=== PATIENT | male | born 1950 | race Caucasian/White ===

== ENCOUNTER 2017-05-05 16:31 | Inpatient (IN) | payer MEDICARE, BC ==
[~2017-05-05] VITALS: Ht 165.1 cm; Wt 64.4 kg
[2017-05-05 20:00] VITALS: BP 145/76
--- NOTE | 2017-05-05 23:45 | NUR ---
RECIEVED PT ON ROUNDS WHEN ARRIVE ON SHIFT AT 2300 PT RESTLESS IN BED WITH FRIEND AT SIDE PT IN DROPLET ISOLATION DUE TO POTENTIAL MENINGITIS NOTED TO BE IN PAIN COMPLAINS OF PAIN LEVEL 9 IN HEAD SHOULDER BACK AND ARMS GIVEN MORPHINE 2 MG PER ORDER IVP PER COMPLAINT AND REQUEST. PIV PATENT TO NS PER ORDER. DRESSING INTACT WITH NO REDNESS NTOED TO SKIN AROUND INSERTION SITE. BED ALARM TURNED ON AND TESTED FOR FUNCTION. SIDE RAILS UP X 2. CALL LIGHT IN REACH FRIEND TO BRING CURRENT MED LIST IN AM
[2017-05-06] VITALS (7 sets, daily range): BP systolic 131–153; BP diastolic 68–79; BMI 23.6
[2017-05-06 05:20] LABS: BASOPHILS 0.2 % (0-2); EOSINOPHILS 0.1 % (0-7); HEMATOCRIT 37.8 % (42.0-54.0); HEMOGLOBIN 12.8 g/dL (13.5-17.5); IMMATURE GRANULOCYTES 0.2 % (0-5); LYMPHOCYTES 6.1 % (15-50); MCH 31.1 pg (26.0-34.0); MCHC 33.9 g/dL (31.0-37.0); MONOCYTES 17.3 % (2-11); NEUTROPHILS 76.1 % (40-80); PLATELET COUNT 375 10x3/uL (130-400); RBC 4.11 10x6/uL (4.20-6.10); RDW 13.8 % (11.5-14.5); WBC 11.1 10x3/uL (4.8-10.8)
[2017-05-06 05:24] LABS: ALBUMIN 2.5 g/dL (3.4-5.0); ALKALINE PHOSPHATASE 58 U/L (46-116); ALT (SGPT) 15 U/L (10-68); BILIRUBIN - TOTAL 0.72 mg/dL (0.2-1.3); CALC OSMOLALITY 261 mosm/kg (275-300); CALCIUM 8.2 mg/dL (8.5-10.1); CARBON DIOXIDE 25.6 mmol/L (21.0-32.0); CHLORIDE - SERUM 94 mmol/L (98-107); CREATININE - SERUM 0.6 mg/dL (0.6-1.3); GLUCOSE 115 mg/dL (74-106); POTASSIUM - SERUM 3.4 mmol/L (3.5-5.1); PROTEIN - SERUM 7.2 g/dL (6.4-8.2); SODIUM 131 mmol/L (136-145); UREA NITROGEN 8 mg/dL (7-18); eGFR NON AFRICAN AMERICAN > 90 mL/min (90-120)
--- NOTE | 2017-05-06 06:42 | NUR ---
MCCLURE CATHETER INSERTED AT 0300 PT HAVING ISSUES WITH VOIDING UNABLE TO VOID AND EMPTY. 16 FR MCCLURE CATHETER INSERTED PER STERILE TECHNIQUE TOLERATED WELL HAD SMALL AMOUNT OF RESISTANCE NOTED IMMEDIATE RETURN OF 450 CC PHONG COLORED URINE.
[2017-05-06] MEDS ORDERED: NORVASC5 MG PO (06:50)
[2017-05-06] MEDS ORDERED: COZAAR50 MG (06:51)
--- NOTE | 2017-05-06 07:30 | NUR ---
PT STATES THEY ARE IN A LOT OF PAIN, PAIN MEDS GIVEN, CALL LIGHT IN REACH, BED LOWEST POSITION, WILL CONTINUE TO MONITOR
[2017-05-06 08:28] LABS: APTT 37.9 SECONDS (22.8-39.4); INR 1.1 (0.85-1.17)
--- NOTE | 2017-05-06 11:00 | NUR ---
REPORTS PAIN BETTER FOR NOW. NO NEEDS AT PRESENT. BED LOW CL IN REACH..
[2017-05-06 11:55] LABS: GLUCOSE - CSF 73 MG/DL (40-75); PROTEIN - CSF 93 MG/DL (12-60)
[2017-05-06 12:26] LABS: APPEARANCE - CSF COLORLESS; RBC - CSF 166 cmm (0-0)
--- NOTE | 2017-05-06 20:51 | NUR ---
ADMINISTERED MORPHINE 2MG IVP PER ORDER. PATIENT IN BED, HOB 30 DEGREES. NO SIGNS OF DISTRESS NOTED. PATIENT FAMILY MEMBER AT BEDSIDE. MAINTAINED DROPLET PRECAUTIONS. PATIENT HAS A TEMP OF 101.6. NOTIFIED , WHO IS PRESENT ON THE UNIT. HE SAID HE WILL ORDER TYLENOL. NOTIFIED PATIENT'S NURSE AIDAN ANAYA.
[2017-05-07] VITALS: BP 148/72
--- NOTE | 2017-05-07 00:25 | NUR ---
WIRE TEMPERER REPORT PT'S TEMP IS 101.2, TYLENOL GIVEN. WILL MONITOR CLOSELY.
[2017-05-07 04:00] VITALS: BP 142/67
[2017-05-07 06:14] LABS: BASOPHILS 0.3 % (0-2); EOSINOPHILS 0.1 % (0-7); HEMATOCRIT 37.6 % (42.0-54.0); HEMOGLOBIN 12.7 g/dL (13.5-17.5); IMMATURE GRANULOCYTES 0.3 % (0-5); MCHC 33.8 g/dL (31.0-37.0); MCV 91.7 fL (80.0-100.0); MEAN PLATELET VOLUME 8.9 fL (7.4-10.4); MONOCYTES 17.4 % (2-11); NEUTROPHILS 69.9 % (40-80); PLATELET COUNT 376 10x3/uL (130-400); RDW 13.8 % (11.5-14.5)
[2017-05-07 06:35] LABS: ALBUMIN 2.3 g/dL (3.4-5.0); ALKALINE PHOSPHATASE 54 U/L (46-116); ALT (SGPT) 21 U/L (10-68); CALC OSMOLALITY 257 mosm/kg (275-300); CALCIUM 8.4 mg/dL (8.5-10.1); CARBON DIOXIDE 26.5 mmol/L (21.0-32.0); CHLORIDE - SERUM 94 mmol/L (98-107); CREATININE - SERUM 0.7 mg/dL (0.6-1.3); GLUCOSE 98 mg/dL (74-106); POTASSIUM - SERUM 3.3 mmol/L (3.5-5.1); PROTEIN - SERUM 6.8 g/dL (6.4-8.2); SODIUM 130 mmol/L (136-145); UREA NITROGEN 5 mg/dL (7-18); eGFR NON AFRICAN AMERICAN > 90 mL/min (90-120)
--- NOTE | 2017-05-07 07:30 | NUR ---
RESTING, AT BEDSIDE, DENIES NEEDS, BATH GIVEN, LINENS CHANGED, BED LOWEST POSITION, CALL LIGHT IN REACH, WILL CONTINUE TO MONITOR
[2017-05-07 08:07] VITALS: BP 148/76
[2017-05-07 10:46] VITALS: Ht 165.1 cm; Wt 64.4 kg
[2017-05-07 12:17] VITALS: BP 154/81
--- NOTE | 2017-05-07 13:21 | NUR ---
DENIES NEEDS AT THIS TIME. AT BEDSIDE. RESPIRATIONS EVEN AND NON LABORED. CALL LIGHT IN REACH, WILL CONTINUE WITH PLAN OF CARE.
[2017-05-07 16:14] VITALS: BP 153/83
[2017-05-07 20:00] VITALS: BP 148/75
--- NOTE | 2017-05-07 22:58 | NUR ---
REC'D LYING IN BED. IS AT BEDSIDE. ALERT AND ORIENTED X1. REPORTED PAIN 5/10. WILL ADMIN PM/AM MEDS PRESCRIBED. NO DISTRESS NOTED. PULLED IV OUT OF LEFT FA. WILL RECITE. INSTRUCTED TO CALL IF NEEDED ANYTHING. VERBALIZED UNDERSTANDING. BED LOW, LOCKED, CALL LIGHT IN REACH, ALARM ON.
[2017-05-08] VITALS: BP 153/78
[2017-05-08 04:00] VITALS: BP 138/69
[2017-05-08 07:00] LABS: BASOPHILS 0.2 % (0-2); EOSINOPHILS 0.1 % (0-7); HEMATOCRIT 37.1 % (42.0-54.0); HEMOGLOBIN 12.6 g/dL (13.5-17.5); IMMATURE GRANULOCYTES 0.3 % (0-5); LYMPHOCYTES 10.9 % (15-50); MCH 31.1 pg (26.0-34.0); MCV 91.6 fL (80.0-100.0); MEAN PLATELET VOLUME 9.1 fL (7.4-10.4); MONOCYTES 14.3 % (2-11); NEUTROPHILS 74.2 % (40-80); PLATELET COUNT 420 10x3/uL (130-400); RBC 4.05 10x6/uL (4.20-6.10); RDW 13.8 % (11.5-14.5); WBC 13.5 10x3/uL (4.8-10.8)
[2017-05-08 07:11] LABS: ALBUMIN 2.1 g/dL (3.4-5.0); ALKALINE PHOSPHATASE 60 U/L (46-116); ALT (SGPT) 27 U/L (10-68); BILIRUBIN - TOTAL 0.61 mg/dL (0.2-1.3); CALC OSMOLALITY 261 mosm/kg (275-300); CALCIUM 8.3 mg/dL (8.5-10.1); CARBON DIOXIDE 28.2 mmol/L (21.0-32.0); CHLORIDE - SERUM 94 mmol/L (98-107); CREATINE KINASE 71 UL (21-232); CREATININE - SERUM 0.5 mg/dL (0.6-1.3); GLUCOSE 99 mg/dL (74-106); POTASSIUM - SERUM 3.3 mmol/L (3.5-5.1); PROTEIN - SERUM 6.8 g/dL (6.4-8.2); SODIUM 131 mmol/L (136-145); UREA NITROGEN 10 mg/dL (7-18); eGFR NON AFRICAN AMERICAN > 90 mL/min (90-120)
--- NOTE | 2017-05-08 08:16 | NUR ---
AWAKE AND ALERT. ORIENTED TO SELF REORIENTED PER STAFF. WILL MONITOR. LUNGS ARE CLEAR BILATERALLY, NO COUGH NOTED. SKIN IS INTACT WITHOUT REDNESS. IV TO LEFT FOREARM IS PATENT WITHOUT REDNESS AT INSERTION SITE. MCCLURE PATNET WITH DARK PHONG URINE. DENIES NEEDS.
[2017-05-08 08:18] VITALS: BP 141/76
--- NOTE | 2017-05-08 10:00 | NUR ---
WARM MOIST HEAT APPLIED TO BACK OF NECK WITH GOOD RELIEF.
--- NOTE | 2017-05-08 12:15 | NUR ---
LUNCH SERVED IN ROOM. FEEDS SELF WITH SET UP ASSIST.
[2017-05-08 12:49] VITALS: BP 144/77
--- NOTE | 2017-05-08 16:00 | NUR ---
FOUND WITH WET BED. APPEARS TO BE WATER. LINENS CHANGED PER STAFF.
[2017-05-08 16:10] VITALS: BP 140/74
--- NOTE | 2017-05-08 19:30 | NUR ---
PATIENT RESTING IN BED AND DENIES NEEDS AT THIS TIME. BED IN LOWEST POSITION, CALL LIGHT WITHIN REACH, AND BED ALARM ON. ENCOURAGED THE PATIENT TO CALL IF HE HAS NEEDS.
[2017-05-08 20:00] VITALS: BP 145/80
[2017-05-09 04:00] VITALS: BP 142/79
[2017-05-09 06:24] LABS: BASOPHILS 0.2 % (0-2); EOSINOPHILS 0.6 % (0-7); HEMATOCRIT 37.3 % (42.0-54.0); HEMOGLOBIN 12.8 g/dL (13.5-17.5); IMMATURE GRANULOCYTES 0.2 % (0-5); LYMPHOCYTES 11.4 % (15-50); MCH 31.2 pg (26.0-34.0); MCHC 34.3 g/dL (31.0-37.0); MEAN PLATELET VOLUME 8.9 fL (7.4-10.4); MONOCYTES 13.2 % (2-11); NEUTROPHILS 74.4 % (40-80); PLATELET COUNT 484 10x3/uL (130-400); RDW 13.8 % (11.5-14.5)
[2017-05-09 06:41] LABS: ALBUMIN 2.1 g/dL (3.4-5.0); ALKALINE PHOSPHATASE 120 U/L (46-116); CALCIUM 8.5 mg/dL (8.5-10.1); CARBON DIOXIDE 30.3 mmol/L (21.0-32.0); CHLORIDE - SERUM 93 mmol/L (98-107); CREATININE - SERUM 0.6 mg/dL (0.6-1.3); GLUCOSE 107 mg/dL (74-106); PROTEIN - SERUM 6.8 g/dL (6.4-8.2); SODIUM 131 mmol/L (136-145); eGFR NON AFRICAN AMERICAN > 90 mL/min (90-120)
[2017-05-09 07:05] LABS: ALT (SGPT) 118 U/L (10-68); CALC OSMOLALITY 260 mosm/kg (275-300); UREA NITROGEN 7 mg/dL (7-18)
--- NOTE | 2017-05-09 07:36 | NUR ---
AWAKE AND ALERT.ORIENTED X2. REORIENTED PER STAFF. WILL MONITOR. LUNGS ARE CLEAR BILATERALLY, NO COUGH NOTED. SKIN IS INTACT WITHOUT REDNESS. ABLE TO LIFT HEAD OFF BED SLIGHTLY THIS AM. DENIES PAIN. IV TO LEFT FOREARM IS PATENT WITHOUT REDNESS AT INSERTION SITE. MCCLURE PATENT WITH CLEAR LIGHT PHONG URINE. DENIES NEEDS AT THIS TIEM.
[2017-05-09 08:55] VITALS: BP 139/81
--- NOTE | 2017-05-09 10:30 | NUR ---
UP TO SHOWER WITH PT. ABLE TO BATH SELF WITH MIN ASSIST. LINENS CHANGED PER STAFF. REPOSITIONED IN BED. FOR COMFORT.
--- NOTE | 2017-05-09 12:30 | NUR ---
LUNCH SERVED IN ROOM. ATE ONLY A FEW BITES.
[2017-05-09 13:07] VITALS: BP 128/76
--- NOTE | 2017-05-09 15:42 | NUR ---
Nutrition Follow Up: Pt reported that his appetite is poor due to pain. He said that he is drinking Ensure. Pt is eating 27% meal avg on a regular diet and receiving Ensure with meals. No BM since admit. Labs reviewed. Meds noted. Rec continue current diet, supplement regimen. RD following.
[2017-05-09 16:18] VITALS: BP 137/84
--- NOTE | 2017-05-09 17:56 | NUR ---
SITTING UP IN BED STARTING TO EAT SUPPER. SIGNIFICANT OTHER AT BEDSIDE. NO CHANGES NOTED.
[2017-05-09 20:00] VITALS: BP 145/90
[2017-05-10] VITALS: BP 147/88
[2017-05-10 04:00] VITALS: BP 152/69
[2017-05-10 05:59] LABS: BASOPHILS 0.6 % (0-2); EOSINOPHILS 2.1 % (0-7); HEMATOCRIT 35.8 % (42.0-54.0); HEMOGLOBIN 12.2 g/dL (13.5-17.5); IMMATURE GRANULOCYTES 0.2 % (0-5); LYMPHOCYTES 13.8 % (15-50); MCH 30.5 pg (26.0-34.0); MCHC 34.1 g/dL (31.0-37.0); MCV 89.5 fL (80.0-100.0); MEAN PLATELET VOLUME 8.9 fL (7.4-10.4); MONOCYTES 14.5 % (2-11); NEUTROPHILS 68.8 % (40-80); PLATELET COUNT 488 10x3/uL (130-400); RDW 13.6 % (11.5-14.5)
[2017-05-10 06:00] LABS: WBC 8.2 10x3/uL (4.8-10.8)
[2017-05-10 06:15] LABS: ALBUMIN 2.1 g/dL (3.4-5.0); ALKALINE PHOSPHATASE 108 U/L (46-116); ALT (SGPT) 137 U/L (10-68); BILIRUBIN - TOTAL 0.49 mg/dL (0.2-1.3); CALC OSMOLALITY 264 mosm/kg (275-300); CALCIUM 8.5 mg/dL (8.5-10.1); CARBON DIOXIDE 29.3 mmol/L (21.0-32.0); CHLORIDE - SERUM 96 mmol/L (98-107); CREATININE - SERUM 0.5 mg/dL (0.6-1.3); GLUCOSE 112 mg/dL (74-106); POTASSIUM - SERUM 3.1 mmol/L (3.5-5.1); PROTEIN - SERUM 6.8 g/dL (6.4-8.2); SODIUM 133 mmol/L (136-145); UREA NITROGEN 8 mg/dL (7-18); eGFR NON AFRICAN AMERICAN > 90 mL/min (90-120)
--- NOTE | 2017-05-10 07:30 | NUR ---
RESPIRATIONS EVEN AND NON LABORED. BED ALARM ON AND CALL LIGHT IN REACH. WILL CONTINUE WITH PLAN OF CARE.
[2017-05-10 09:13] VITALS: BP 148/82
--- NOTE | 2017-05-10 09:35 | NUR ---
SCHEDULED MEDICATIONS ADMINISTERED AT THIS TIME. ASSESSMENT PERFORMED PER FLOWSHEET. UP IN CHAIR PER PHYSICAL THERAPY WITH SIGNIFICANT OTHER AT BEDSIDE. PRN TYLENOL ADMINISTERED FOR GENERALIZED PAIN. MCCLURE CATHETER D/C WITH CATH TIP INTACT PER ORDER. IV TO LEFT FOREARM PATENT WITH NO S/S OF INFILTRATION PRESENT. CALL LIGHT IN REACH, DENIES NEEDS. WILL CONTINUE WITH PLAN OF CARE.
--- NOTE | 2017-05-10 11:41 | NUR ---
SCHEDULED FLORAJEN ADMINISTERED AT THIS TIME. IN BED WITH BED ALARM ON AND CALL LIGHT IN REACH, WILL CONTINUE WITH PLAN OF CARE.
[2017-05-10 13:11] VITALS: BP 140/89
[2017-05-10 18:05] VITALS: BP 156/83
--- NOTE | 2017-05-10 19:47 | NUR ---
REPOSITIONED PATIENT IN BED WITH ZOHRA MARVIN. PATIENT DENIES OTHER NEEDS AT THIS TIME. BED IN LOWEST POSITION, CALL LIGHT WITHIN REACH, AND BED ALARM ON. ENCOURAGED THE PATIENT TO CALL IF HE HAS NEEDS.
[2017-05-10 20:00] VITALS: BP 161/87
[2017-05-11] VITALS: BP 155/80
[2017-05-11 04:00] VITALS: BP 152/77
--- NOTE | 2017-05-11 07:43 | NUR ---
AM ROUNDS- PT IN BED, ASKING FOR SOMETHING FOR HEADACHE. WILL SEE WHAT HE HAS ORDERED AND PROVIDED PT WITH IT. PT DENIES ANY OTHER NEEDS AT THIS TIME. BED LOW AND WHEELS LOCKED, BEDSIDE RAILS X2, CALL LIGHT IN REACH, NAD NOTED, WILL CONTINUE TO MONITOR.
--- NOTE | 2017-05-11 08:21 | NUR ---
AM MEDS GIVEN AT THIS TIME. LT FA IV RED AND TENDER TO TOUCH. WILL D/C IV AND START A NEW ONE. PT DENIES ANY NEEDS AT THIS TIME. CALL LIGHT IN REACH, NAD NOTED, WILL CONTINUE TO MONITOR.
[2017-05-11 09:12] VITALS: BP 144/81
--- NOTE | 2017-05-11 09:47 | NUR ---
NEW 22G IV STARTED TO RT FA XI STICK, PT TOLERATED PROCEDURE WELL. D/C LT FA IV, TIP INTACT. PT DENIES ANY NEEDS AT THIS TIME. FAMILY AT BEDSIDE, NAD NOTED, WILL CONTINUE TO MONITOR.
--- NOTE | 2017-05-11 15:06 | NUR ---
Patient Name: TRAVIS LOPEZ Admission Status: Urgent Accout number: [id number] Admission Date: 05-05-2017 : 1950 Admission Diagnosis:FEVER, UNSPECIFIED Attending: ROBYN Current LOS: 2 Anticipated DC Date: 05-09-2017 Planned Disposition: Home Primary Insurance: MEDICARE A & B Discharge Planning Comments: CM MET WITH PATIENT AND FRIEND (WU) REGARDING D/C NEEDS AND PLANS. PATIENT STATED HE HAS ABOUT 10 STEPS TO ENTER HOME AND NO STAIRS ONCE INSIDE. PATIENTS FRIEND WILL BE DRIVING HIM HOME AT DISCHARGE. PATIENT IS INDEPENDENT WITH HIS CARE AND HAS A CANE AT HOME. PATIENTS PCP IS DR. EDMONDSON AND [facility]AR[facility] IS [facility]. ON [address]. PATIENT IS REFUSING HOME HEALTH. HIS FRIEND IS GOING HOME WITH HIM AT DISCHARGE. CM WILL CONTINUE TO FOLLOW PATIENT WITH D/C NEEDS AND PLANS. [facility] [phone] WU (FRIEND) [phone] Needle Loom Tender: Bhavana Garcia Is the patient Alert and Oriented? Yes 0 * How many steps to enter\exit or inside your home? 10 0 * PCP DR. EDMONDSON 0 * [facility] ON [address] 0 * Preadmission Environment Home Alone 0 * ADLs Independent 0 * Equipment Cane 0 * List name and contact numbers for known caregivers / representatives who currently or will assist patient after discharge: WU [phone] * Community resources currently utilized None 0 * Additional services required to return to the preadmission environment? Yes 0 * Can the patient safely return to the preadmission environment? Yes 0 * Has this patient been hospitalized within the prior 30 days at any hospital? No 0 Grand Total: 0
--- NOTE | 2017-05-11 18:23 | NUR ---
PT IN BED, DENIES ANY NEEDS AT THIS TIME. CALL LIGHT IN REACH, BED ALARM ON. FAMILY AT BEDSIDE, NAD NOTED, WILL CONTINUE TO MONITOR.
--- NOTE | 2017-05-11 19:30 | NUR ---
PATIENT RESTING IN BED WITH EYES CLOSED AND NO VISIBLE SIGNS OF DISTRESS. BED IN LOWEST POSITION AND CALL LIGHT WITHIN REACH.
[2017-05-11 20:00] VITALS: BP 153/90
[2017-05-12 04:00] VITALS: BP 137/66
--- NOTE | 2017-05-12 04:00 | NUR ---
NOTIFIED BY ZOHRA MATTHEWS THAT HE FOUND THE PATIENT ON THE FLOOR AT THE END OF HIS BED. PATIENT STATED THAT HE HAD FALLEN. PT'S FALL RISK AT THE TIME WAS A 2. SUDHEER DARDEN HELPED CASSIE GET THE PT BACK INTO BEED. THE PATIENT HAS A BUMP AND RED NEHA TO THE RIGHT SIDE OF HIS HEAD. PT'S VITALS ARE BP 163/80, P 79, R 18, T 97.3. PATIENT IS ALERT AND ORIENTED WITH NO SIGNS OF DISTRESS. PT ALSO PULLED HIS IV PARTIALLY OUT DURING THE FALL. I RESITED THE PATIENT'S IV IN HIS LEFT FOREARM ON THE FIRST ATTEMPT WITH A 20G NEEDLE. PT'S BED IS IN THE LOWEST POSITION, CALL LIGHT WITHIN REACH, AND HIS BED ALARM IS ON. I INFORMED THE PATIENT THAT HIS CALL LIGHT IS ON AND HE WILL NEED TO CALL PRIOR TO GETTING OUT OF BED.
--- NOTE | 2017-05-12 04:40 | NUR ---
PAGED DR. EDMONDSON IN REGARDS TO PATIENT FALL.
--- NOTE | 2017-05-12 05:10 | NUR ---
PAGED DR. EDMONDSON IN REGARDS TO PATIENT'S FALL
--- NOTE | 2017-05-12 05:14 | NUR ---
SPOKE WITH DR. EDMONDSON TO NOTIFY HIM OF THE PATIENT'S FALL. DR. EDMONDSON SAID THAT THE PT IS GOING FOR AN MRI TODAY AND HE DOES NOT WANT ANY FURTHER TESTS AT THIS TIME.
--- NOTE | 2017-05-12 05:17 | NUR ---
LEFT A MESSAGE FOR WU, PT'S ER CONTACT
[2017-05-12 05:58] LABS: BASOPHILS 2.3 % (0-2); HEMATOCRIT 40.2 % (42.0-54.0); HEMOGLOBIN 13.6 g/dL (13.5-17.5); IMMATURE GRANULOCYTES 0.7 % (0-5); LYMPHOCYTES 26.9 % (15-50); MCH 30.8 pg (26.0-34.0); MCHC 33.8 g/dL (31.0-37.0); MEAN PLATELET VOLUME 8.8 fL (7.4-10.4); MONOCYTES 14.3 % (2-11); NEUTROPHILS 48.8 % (40-80); RBC 4.42 10x6/uL (4.20-6.10)
[2017-05-12 06:26] LABS: PLATELET COUNT 634 10x3/uL (130-400)
[2017-05-12 06:27] LABS: ALBUMIN 2.3 g/dL (3.4-5.0); ALKALINE PHOSPHATASE 93 U/L (46-116); ALT (SGPT) 123 U/L (10-68); BILIRUBIN - TOTAL 0.36 mg/dL (0.2-1.3); CALC OSMOLALITY 271 mosm/kg (275-300); CALCIUM 8.8 mg/dL (8.5-10.1); CARBON DIOXIDE 27.9 mmol/L (21.0-32.0); CHLORIDE - SERUM 100 mmol/L (98-107); GLUCOSE 106 mg/dL (74-106); PROTEIN - SERUM 7.2 g/dL (6.4-8.2); SODIUM 137 mmol/L (136-145); UREA NITROGEN 8 mg/dL (7-18)
[2017-05-12 06:30] LABS: CREATININE - SERUM 0.7 mg/dL (0.6-1.3); POTASSIUM - SERUM 3.7 mmol/L (3.5-5.1); eGFR NON AFRICAN AMERICAN > 90 mL/min (90-120)
--- NOTE | 2017-05-12 07:50 | NUR ---
REPORT RECIEVED ASSUMED CARE. PATIENT IN BED WITH IV INTACT. NO COMPLAINTS. EYES CLOSED RESTING QUIETLY. CALL LIGHT WITHIN REACH.
[2017-05-12 08:25] VITALS: BP 150/93
--- NOTE | 2017-05-12 09:00 | NUR ---
ASSESSMENT COMPLETE, VS STABLE. IV INTACT. NO COMPLAINTS. SITTING UP IN BED AT THIS TIME WITH CALL LIGHT WITHIN REACH.
--- NOTE | 2017-05-12 10:30 | NUR ---
PATIENT UP AMBULATING IN HALLWAY WITH PT AT THIS TIME.
--- NOTE | 2017-05-12 14:19 | NUR ---
Rehab Note- Acute Rehab Prescreen order received. The patient appears to be a good IRF candidate when medically stable and ready for discharge from the acute hospital. Has an MRI of head ordered for tomorrow, 05/13. Thank you for this referral! Francesca Tirado RN Clinical Liaison, [facility] Rehab
--- NOTE | 2017-05-12 14:48 | NUR ---
PATIENT IN BED WITH NO COMPLAINTS AT THIS TIME. IV INTACT. CALL LIGHT WITHIN REACH.
[2017-05-12 16:15] VITALS: BP 140/82
[2017-05-12 17:10] LABS: RMSF IGM 0.38 index (0.00-0.89)
--- NOTE | 2017-05-12 18:22 | NUR ---
PATIENT IN BED WITH EYES CLOSED RESTING QUIETLY. NO COMPLAINTS. CALL LIGHT WITHIN REACH. IV INTACT.
[2017-05-12 19:00] VITALS: BP 150/88
[2017-05-13 04:00] VITALS: BP 152/84
[2017-05-13 06:38] LABS: BASOPHILS 2.7 % (0-2); EOSINOPHILS 7.9 % (0-7); HEMATOCRIT 38.8 % (42.0-54.0); HEMOGLOBIN 13.1 g/dL (13.5-17.5); IMMATURE GRANULOCYTES 1.1 % (0-5); LYMPHOCYTES 23.6 % (15-50); MCH 30.8 pg (26.0-34.0); MCHC 33.8 g/dL (31.0-37.0); MCV 91.3 fL (80.0-100.0); MEAN PLATELET VOLUME 8.6 fL (7.4-10.4); MONOCYTES 15.8 % (2-11); NEUTROPHILS 48.9 % (40-80); PLATELET COUNT 650 10x3/uL (130-400); RBC 4.25 10x6/uL (4.20-6.10); RDW 14.1 % (11.5-14.5); WBC 6.2 10x3/uL (4.8-10.8)
[2017-05-13 06:55] LABS: ALBUMIN 2.3 g/dL (3.4-5.0); ALKALINE PHOSPHATASE 84 U/L (46-116); ALT (SGPT) 94 U/L (10-68); CALC OSMOLALITY 274 mosm/kg (275-300); CALCIUM 8.6 mg/dL (8.5-10.1); CARBON DIOXIDE 26.8 mmol/L (21.0-32.0); CHLORIDE - SERUM 102 mmol/L (98-107); CREATININE - SERUM 0.6 mg/dL (0.6-1.3); GLUCOSE 104 mg/dL (74-106); POTASSIUM - SERUM 3.4 mmol/L (3.5-5.1); PROTEIN - SERUM 6.7 g/dL (6.4-8.2); SODIUM 138 mmol/L (136-145); UREA NITROGEN 9 mg/dL (7-18); eGFR NON AFRICAN AMERICAN > 90 mL/min (90-120)
--- NOTE | 2017-05-13 07:00 | NUR ---
REPORT RECIEVED ASSUMED CARE. PATIENT IN BED WITH IV INTACT. NO COMPLAINTS. CALL LIGHT WITHIN REACH.
--- NOTE | 2017-05-13 08:00 | NUR ---
ASSESSMENT COMPLETE, VS STABLE. NO COMPLAINTS AT THIS TIME. IV INTACT. CALL LIGHT WITHIN REACH.
[2017-05-13 08:30] VITALS: BP 143/90
--- NOTE | 2017-05-13 10:24 | NUR ---
NUTRITION MONITORING & EVAL CHART REVIEWED. PT UP IN CHAIR. POOR PO INTAKE BREAKFAST. WILL CONTINUE TO PROVIDE DIET, ENSURE. MONITOR PO INTAKE. RD FOLLOWING
--- NOTE | 2017-05-13 10:45 | NUR ---
PATIENT UP AMBULATING WITH PT.
--- NOTE | 2017-05-13 11:29 | NUR ---
Rehab Note- Visited with Mr Parker in his room with visitors present. In agreeance to [facility] IRF stay after MRI completed today. Thank you for this referral! Francesca Tirado RN Clinical Liaison, [facility] Rehab
--- NOTE | 2017-05-13 15:40 | NUR ---
PATIENT TO MRI
[2017-05-13] MEDS ORDERED: ROCEPHIN 1 GM/D51 G1 IVPB (17:12)
[2017-05-13] MEDS ORDERED: FLORAJEN3 CAPS460 MG PO (17:13)
[2017-05-13] MEDS ORDERED: VANCOMYCIN 1 GM/1 G1 IV (17:15)
--- NOTE | 2017-05-13 18:00 | NUR ---
PATIENT TO GO TO REHAB.
--- NOTE | 2017-05-13 18:30 | NUR ---
TRIED TO CALL REPORT TO REHAB. NO ANSWER X 3. PATIENT IN BED WITH IV INTACT. CALL LIGHT WITHIN REACH.
[2017-05-13 19:07] VITALS: BP 128/68
[2017-05-14 10:20] LABS: F. TULARENSIS - IGG Negative (()); F. TULARENSIS - IGM Negative (())
[2017-05-14 14:21] LABS: EHRLICHIA CHAFF IGG Negative (Neg:<1:64); EHRLICHIA CHAFF IGM Negative (Neg:<1:20); HGE IGG TITER Negative (Neg:<1:64); HGE IGM TITER Negative (Neg:<1:20)
== END 2017-05-13 20:09 | DRG 602 ==
LOC: D.MS 16:31
PROVIDERS: Specialist; Student in an Organized Health Care Education/Training Program; ADMIT Family Medicine
PROC: 009U3ZX Drainage of Spinal Canal, Percutaneous Approach, Diagnostic (ICD-10-PCS; principal; 2017-05-06)
PROC: B01B1ZZ Fluoroscopy of Spinal Cord using Low Osmolar Contrast (ICD-10-PCS; 2017-05-06)
DX: L02.11 Cutaneous abscess of neck (principal); G93.40 Encephalopathy, unspecified; E87.1 Hypo-osmolality and hyponatremia; M60.08 Infective myositis, other site; R53.1 Weakness; R51 Headache; I10 Essential (primary) hypertension; K21.9 Gastro-esophageal reflux disease without esophagitis; F10.10 Alcohol abuse, uncomplicated; W06.XXXA Fall from bed, initial encounter; Y92.230 Patient room in hospital as the place of occurrence of the external cause

== ENCOUNTER 2017-05-13 14:53 | Inpatient (IN) | payer MEDICARE, BC ==
[~2017-05-13] VITALS: Ht 165.1 cm; Wt 61.2 kg
[~2017-05-13 14:53] MED LIST: COZAAR50 MG; NORVASC5 MG PO
[2017-05-13] MEDS ORDERED: ROCEPHIN 1 GM/D51 G1 IVPB (17:12)
[2017-05-13] MEDS ORDERED: FLORAJEN3 CAPS460 MG PO (17:13)
[2017-05-13] MEDS ORDERED: VANCOMYCIN 1 GM/1 G1 IV (17:15)
[2017-05-13 22:04] VITALS: BP 150/88; BMI 22.5
--- NOTE | 2017-05-13 23:08 | NUR ---
ADMISSION PROCESS COMPLETED. NO VOICED NEEDS AT THIS TIME. CALL LIGHT WITHIN REACH.
--- NOTE | 2017-05-14 03:02 | NUR ---
PT. IN BED LYING ON HIS RIGHT SIDE. EYES CLOSED AND RESP. EVEN. CALL LIGHT WITHIN REACH.
--- NOTE | 2017-05-14 06:10 | NUR ---
PT. IN BED WITH HOB UP FOR COMFORT AND LYING ON HIS RIGHT SIDE. EYES CLOSED AND RESP. EVEN. CALL LIGHT WITHIN REACH.
[2017-05-14 06:31] LABS: BASOPHILS 1.4 % (0-2); EOSINOPHILS 5.3 % (0-7); HEMATOCRIT 39.4 % (42.0-54.0); HEMOGLOBIN 13.1 g/dL (13.5-17.5); IMMATURE GRANULOCYTES 1.3 % (0-5); MCH 30.5 pg (26.0-34.0); MCHC 33.2 g/dL (31.0-37.0); MCV 91.6 fL (80.0-100.0); MEAN PLATELET VOLUME 8.6 fL (7.4-10.4); MONOCYTES 12.7 % (2-11); NEUTROPHILS 51.3 % (40-80); PLATELET COUNT 727 10x3/uL (130-400); RDW 14.2 % (11.5-14.5); WBC 7.2 10x3/uL (4.8-10.8)
[2017-05-14 07:01] LABS: CALC OSMOLALITY 273 mosm/kg (275-300); CALCIUM 8.7 mg/dL (8.5-10.1); CARBON DIOXIDE 28.9 mmol/L (21.0-32.0); CHLORIDE - SERUM 101 mmol/L (98-107); GLUCOSE 101 mg/dL (74-106); POTASSIUM - SERUM 3.8 mmol/L (3.5-5.1); SODIUM 138 mmol/L (136-145); UREA NITROGEN 8 mg/dL (7-18)
[2017-05-14 07:09] LABS: CREATININE - SERUM 0.8 mg/dL (0.6-1.3); eGFR NON AFRICAN AMERICAN > 90 mL/min (90-120)
--- NOTE | 2017-05-14 07:32 | NUR ---
RESTING QUIETLY IN BED. EYES CLOSED. NO S/S DISTRESS OR NEEDS. CALL LIGHT IN REACH.
[2017-05-14 07:56] VITALS: BP 145/93
[2017-05-14 11:08] VITALS: Ht 165.1 cm; Wt 61.2 kg
--- NOTE | 2017-05-14 15:03 | NUR ---
CARE TEAM MEETING: PATIENT NEW TO UNIT AND WILL BE RA AT NEXT MEETING. VISITED WITH PATIENT AND HIS PLANS ARE FOR HIM TO RETURN HOME. WILL CONTINUE TO FOLLOW WITH PATIENT.
--- NOTE | 2017-05-14 15:07 | NUR ---
CARE TEAM MEETING: PATIENT IS NEW TO UNIT AND WILL BE RA AT NEXT MEETING. DR. EDMONDSON IS HIS PCP, HE USES [employer] FOR HIS PHARMACY NEEDS. HIS DISCHARGE PLANS ARE FOR HIM TO RETURN HOME AND HIS FRIEND WU WILL ASSIST HIM AT DISCHARGE. WILL CONTINUE TO FOLLOW WITH PATIENT.
--- NOTE | 2017-05-14 19:30 | NUR ---
PT IN BED WITH HOB UP FOR COMFORT. WATCHING TV. ALERT & ORIENTED. NO O2. LEFT UPPER ARM SALINE LOC. CANE. BED/CHAIR WAIVER. BED IN LOWEST POSITION AND CALL LIGHT WITHIN REACH.
--- NOTE | 2017-05-14 23:30 | NUR ---
PT IN BED WITH HOB UP FOR COMFORT. EYES CLOSED. RESP. EVEN. BED IN LOWEST POSITION AND CALL LIGHT WITHIN REACH.
--- NOTE | 2017-05-15 00:40 | NUR ---
RESTING IN BED ON RIGHT SIDE. NO DISTRESS EVIDENT.
--- NOTE | 2017-05-15 01:10 | NUR ---
PT LYING IN BED, EYES CLOSED. CHEST RISING AND FALLING. IV INFUSING. BED IN LOWEST POSITION AND CALL LIGHT WITHIN REACH.
--- NOTE | 2017-05-15 04:18 | NUR ---
PT IN BED WITH HOB UP FOR COMFORT. EYES CLOSED. CHEST RISING AND FALLING. BED IN LOWEST POSITION AND CALL LIGHT WITHIN REACH.
--- NOTE | 2017-05-15 07:30 | NUR ---
PT IS RESTING IN BED WITH EYES OPEN. ALERT AND ORIENTED X 4. DENIES ACUTE PAIN OR DISCOMFORT AT THIS TIME. LEFT UPPER ARM SALINE LOCK NOTED. SR'S ARE UP X 2 IN BED. CALL LIGHT AND BEDSIDE TABLE ARE WITHIN EASY REACH.
[2017-05-15 08:00] VITALS: BP 134/83
--- NOTE | 2017-05-15 09:53 | NUR ---
PT IS PARTICIPATING IN THERAPY AT THIS TIME.
--- NOTE | 2017-05-15 10:24 | NUR ---
Nutrition Follow Up: Chart reviewed. Pt is eating 46% meal avg on a regular diet. He is receiving Ensure daily. No BM since admit. Wt stable. Labs and meds reviewed. Rec continue current diet. Will continue to provide selective menus and honor food preferences. Will continue to send Ensure daily. RD following.
--- NOTE | 2017-05-15 12:01 | NUR ---
PT IS FEEDING SELF LUNCH IN HIS ROOM. NO ACUTE DISTRESS NOTED.
--- NOTE | 2017-05-15 13:25 | NUR ---
IV NOTED TO BE INFILTRATED TO LEFT UPPER ARM. IV DC'D WITH CATH INTACT. BANDAID APPLIED TO SITE. IV RESITED TO RIGHT FOREARM WITH 22 G CATH USING STERILE TECHNIQUE. SECURED WITH TAPE AND OPSITE. IV RESTARTED.
--- NOTE | 2017-05-15 16:25 | NUR ---
PT RESTING IN BED WATCHING TV. NO ACUTE DISTRESS NOTED.
--- NOTE | 2017-05-15 17:33 | NUR ---
SITTING UP EATING SUPPER. DENIES NEEDS. CALL LIGHT IN REACH.
[2017-05-15 19:26] VITALS: BP 116/71
--- NOTE | 2017-05-15 20:08 | NUR ---
PT EXPRESSED ON PHONE CALL THAT HE WOULD LIKE TO BE DISCHARGED SOON POSSIBLE. PT DENIES ANY NEEDS AT THIS TIME.
--- NOTE | 2017-05-16 00:01 | NUR ---
PT APPEARS TO HAVE SLEPT THROUGH IV INFUSION. NO S/S OF ACUTE DISTRESS.
--- NOTE | 2017-05-16 05:23 | NUR ---
PT RESTING QUIETLY, EYES CLOSED, NO S/S OF ACUTE DISTRESS.
[2017-05-16 08:00] VITALS: BP 124/75
--- NOTE | 2017-05-16 18:08 | NUR ---
DENIES PAIN OR NEEDS. CALL LIGHT IN REACH
[2017-05-16 19:50] VITALS: BP 132/77
--- NOTE | 2017-05-16 19:53 | NUR ---
PT. UP IN ROOM WITH HIS CANE. ASSESSMENT COMPLETED. NO VOICED NEEDS AT THIS TIME. CALL LIGHT WITHIN REACH. PT. ANXIOUS ABOUT GOING HOME SOON.
--- NOTE | 2017-05-16 23:08 | NUR ---
PT. IN BED WITH HOB SLIGHTLY ELEVATED. EYES CLOSED AND RESP. EVEN. IV ANTIBIOTIC CONTINUES TO INFUSE WITHOUT ANY ALARMS INTO PERIPHERAL IV SITE TO RIGHT FOREARE. CALL LIGHT WITHIN REACH.
--- NOTE | 2017-05-17 03:06 | NUR ---
PT. IN BED LYING ON HIS LEFT SIDE WITH EYES CLOSED AND RESP. EVEN. CALL LIGHT WITHIN REACH.
[2017-05-17 07:30] VITALS: BP 159/90
--- NOTE | 2017-05-17 08:00 | NUR ---
PT REFUSED BREAKFAST THIS AM, STATING HE HAD BEEN SNACKING ALL MORNING ALREADY. ALERT AND ORIENTED X 4. DENIES ACUTE PAIN OR DISCOMFORT THIS AM. VSS. ASSISTED UP TO SHOWER INDEPENDENTLY. SR'S ARE UP X 2 WHILE IN BED. CALL LIGHT AND BEDSIDE TABLE ARE WITHIN EASY REACH.
--- NOTE | 2017-05-17 09:23 | NUR ---
PT IS PARTICIPATING IN THERAPY AT THIS TIME.
--- NOTE | 2017-05-17 12:41 | NUR ---
PT IS UP AMBULATING IN HALLS WITH HIS FEMALE FRIEND. NO COMPLAINT VOICED.
--- NOTE | 2017-05-17 14:25 | NUR ---
IN THERAPY.ASFHIN ACTIVITY WELL.
--- NOTE | 2017-05-17 17:38 | NUR ---
PT IS SITTING ON THE DECK VISITING A FRIEND. NO ACUTE DISTRESS NOTED.
--- NOTE | 2017-05-17 19:35 | NUR ---
PT. IN BED WITH HOB UP FOR COMFORT AND IS WATCHING TV. NO VOICED NEEDS AT THIS TIME BUT WOULD LIKE HIS TYLENOL AT BEDTIME. ASSESSMENT COMPLETED. CALL LIGHT WITHIN REACH.
[2017-05-17 20:00] VITALS: BP 142/91
--- NOTE | 2017-05-17 23:27 | NUR ---
PT. IN BED LYING ON HIS RIGHT SIDE WITH EYES CLOSED AND RESP. EVEN. IV INFUSING VIA RT. F.A. WITHOUT ANY ALARMS FROM PUMP. CALL LIGHT WITHIN REACH.
--- NOTE | 2017-05-18 03:17 | NUR ---
PT. IN BED LYING ON HIS RIGHT SIDE WITH EYES CLOSED AND RESP. EVEN. CALL LIGHT WITHIN REACH.
[2017-05-18 07:09] LABS: CALC OSMOLALITY 282 mosm/kg (275-300); CALCIUM 9.2 mg/dL (8.5-10.1); CARBON DIOXIDE 31.8 mmol/L (21.0-32.0); CHLORIDE - SERUM 103 mmol/L (98-107); CREATININE - SERUM 0.9 mg/dL (0.6-1.3); GLUCOSE 110 mg/dL (74-106); SODIUM 141 mmol/L (136-145); UREA NITROGEN 14 mg/dL (7-18); eGFR NON AFRICAN AMERICAN 89 mL/min (90-120)
[2017-05-18 08:00] VITALS: BP 146/80
--- NOTE | 2017-05-18 08:21 | NUR ---
SITTING UP IN BED WATCHING TV. PLEASANT AFFECT. OFFERS NO COMPLAINTS. CALL LIGHT IN REACH. WILL CONTINUE TO MONITOR
--- NOTE | 2017-05-18 12:45 | NUR ---
SITTING UP IN BED WATCHING TV. CHECKED ON INFUSION AND NOTICED IV SITE IN RIGHT FOREARM RED AND LEAKING, IV INFILTRATED. STOPPED INFUSION AND RESITED TO RIGHT OUTER AC 20G X1 ATTEMPTED. INFUSION RESTARTED.
--- NOTE | 2017-05-18 13:00 | NUR ---
CL IN REACH.WILL CONTINUE TO MONITOR.
--- NOTE | 2017-05-18 13:30 | NUR ---
SITTING UP ON SIDE OF BED EATING LUNCH. OFFERS NO COMPLAINTS. CALL LIGHT IN REACH. WILL CONTINUE TO MONITOR
--- NOTE | 2017-05-18 19:35 | NUR ---
PT. IN BED WITH HOB UP FOR COMFORT AND IS VISITING WITH FRIEND. ANSWERED PT'S QUESTIONS ABOUT HOME I.V. THERAPY. PT. REPORTS HE WAS TOLD HE WAS GOING TO GET A PICC LINE TOMORROW IF HE'S TO GET ONCOLOGY ADMIN I.V. THERAPY AT HOME WHEN HE'S DISCHARGED POSSIBLY TOMORROW. ASSESSMENT COMPLETED. NO VOICED NEEDS AT THIS TIME AND HIS CALL LIGHT IS WITHIN REACH.
[2017-05-18 20:00] VITALS: BP 156/83
--- NOTE | 2017-05-18 23:22 | NUR ---
PT. IN BED WITH HOB UP FOR COMFORT AND IS WATCHING TV. PT. IS WANTING TO WAIT UNTIL HIS I.V. IS COMPLETED BEFORE HE GOES TO SLEEP. NO VOICED NEEDS AND HIS CALL LIGHT IS WITHIN REACH.
--- NOTE | 2017-05-19 03:15 | NUR ---
PT. IN BED WITH HOB SLIGHTLY ELEVATED FOR COMFORT. EYES CLOSED AND RESP. EVEN. CALL LIGHT WITHIN REACH.
[2017-05-19 07:02] LABS: BASOPHILS 2.6 % (0-2); EOSINOPHILS 2.5 % (0-7); HEMATOCRIT 41.2 % (42.0-54.0); HEMOGLOBIN 13.8 g/dL (13.5-17.5); IMMATURE GRANULOCYTES 0.5 % (0-5); LYMPHOCYTES 19.4 % (15-50); MCH 30.6 pg (26.0-34.0); MCHC 33.5 g/dL (31.0-37.0); MCV 91.4 fL (80.0-100.0); MEAN PLATELET VOLUME 9.1 fL (7.4-10.4); MONOCYTES 11.9 % (2-11); NEUTROPHILS 63.1 % (40-80); PLATELET COUNT 806 10x3/uL (130-400); RBC 4.51 10x6/uL (4.20-6.10); RDW 14.6 % (11.5-14.5); WBC 7.9 10x3/uL (4.8-10.8)
[2017-05-19 07:30] LABS: CALC OSMOLALITY 280 mosm/kg (275-300); CALCIUM 8.8 mg/dL (8.5-10.1); CARBON DIOXIDE 29.7 mmol/L (21.0-32.0); CHLORIDE - SERUM 102 mmol/L (98-107); CREATININE - SERUM 0.9 mg/dL (0.6-1.3); GLUCOSE 111 mg/dL (74-106); POTASSIUM - SERUM 3.6 mmol/L (3.5-5.1); SODIUM 140 mmol/L (136-145); UREA NITROGEN 16 mg/dL (7-18); eGFR NON AFRICAN AMERICAN 89 mL/min (90-120)
--- NOTE | 2017-05-19 08:02 | NUR ---
SITTING UP IN BED EATING BREAKFAST. DENIES NEEDS OR C/O. CALL LIGHT IN REACH
[2017-05-19 08:29] VITALS: BP 146/88
--- NOTE | 2017-05-19 10:51 | NUR ---
MISSY, VASCULAR NURSE CONSULTED FOR PLACEMENT OF PICC/MIDLINE FOR IV ABX.
--- NOTE | 2017-05-19 18:23 | NUR ---
OUT ON BACK DECK TALKING TO FRIEND. DENIES NEEDS.
[2017-05-19 19:54] VITALS: BP 153/84
--- NOTE | 2017-05-19 19:54 | NUR ---
PT BACK TO ROOM AFTER AMB IN [place]ARKS, PT BACK TO BED, ASSESSMENT PER FLOW SHEET, VS OBTAINED, SALINE LOCK IN UPPER RIGHT ARM INTACT WITH NO REDNESS OR EDEMA, SALINE LOCK IN RIGHT AC INTACT WITH NO REDNESS OR EDEMA, PT REPORTS FLATUS, BM TODAY, AND VOIDING BY SELF WITH NO DIFFICULTY, PT REQUESTED AND SERVED FRESH H20, DENIES FURTHER NEEDS OR PAIN AT THIS TIME
--- NOTE | 2017-05-19 20:30 | NUR ---
PT RESTING IN BED WATCHING TV, DENIES NEEDS AT THIS TIME
--- NOTE | 2017-05-19 21:40 | NUR ---
PT RESTING IN BED, WATCHING TV, INQUIRES ABOUT NEXT ANTIBIOTIC, INFORMED PT THAT IT WAS DUE AT 11PM, PT VERBALIZES UNDERSTANDING, DENIES NEEDS AT THIS TIME
--- NOTE | 2017-05-19 22:23 | NUR ---
PT IN BED, WATCHING TV, STATES "I'M JUST GOING TO WAIT UNTIL THE ANTIBIOTIC IS DUE, AND THEN WHEN IT IS FINISHED, I PLAN ON GOING TO BED THEN", DENIES NEEDS OR PAIN AT THIS TIME
--- NOTE | 2017-05-19 23:04 | NUR ---
SALINE LOCK CONVERTED TO IV, NS INITIATED FOR FLUSH, ROCEPHIN HUNG IVPB PER MD ORDERS, SEE EMAR, PT DENIES NEEDS AT THIS TIME
--- NOTE | 2017-05-20 00:20 | NUR ---
PT RESTING WITH EYES CLOSED, AROUSES TO SOFT VERBAL STIMULATION, IV CONVERTED TO SALINE LOCK, LINE FLUSHED, PT DENIES NEEDS OR PAIN
--- NOTE | 2017-05-20 02:23 | NUR ---
PT RESTING WITH EYES CLOSED, RESP QUIET, NO DISTRESS NOTED, LEFT UNDISTURBED AT THIS TIME
--- NOTE | 2017-05-20 04:06 | NUR ---
PT RESTING WITH EYES CLOSED, RESP QUIET, NO DISTRESS NOTED, LEFT UNDISTURBED AT THIS TIME
--- NOTE | 2017-05-20 06:14 | NUR ---
PT RESTING WITH EYES CLOSED, AROUSES TO SOFT VERBAL STIMULATION, SALINE LOCK CONVERTED TO IV, FLUSHED WITH NS WITH NO DIFFICULTY, VANCOMYCIN HUNG IVPB PER MD ORDERS, SEE EMAROC VERIFIED WITH LINDA, PHARMACIST, SEE EMAR, PT DENIES NEEDS OR PAIN
--- NOTE | 2017-05-20 07:00 | NUR ---
SHIFT REPORT TO DAY SHIFT
--- NOTE | 2017-05-20 08:00 | NUR ---
PATIENT ALERT/ORIENT X4. HAS SIGNED A BED/CHAIR ALARM WAVIOR. WALKING AROUND IN ROOM BY SELF. STEADY GAIT. PICC LINE TO UPPER RIGHT ARM. VOICES NO NEEDS AT THIS TIME
[2017-05-20 08:17] VITALS: BP 133/66
--- NOTE | 2017-05-20 09:30 | NUR ---
PATIENT STATES THAT HE IS GOING HOME TODAY. DR. MACK CONTACTED AND STATED HE WILL BE INTO DISCHARGE PATIENT TODAY. [facility] SET UP FOR NURSING CARE. [facility] SET UP FOR VANCOMYCIN AND ROCEPHIN IV THERAPY. FOLLOW UP APPOINTMENTS MADE FOR DR EDMONDSON AND DR BUENROSTRO.
--- NOTE | 2017-05-20 11:48 | NUR ---
MIDLINE TO RIGHT FOREARM PULLED. PATIENT HAS PICC LINE IN UPPER RIGHT ARM.
--- NOTE | 2017-05-20 11:53 | NUR ---
Have spoken with Gayatri with [facility] concerning IV AAx therapy for the patient. Provider her with his cell # to be able to speak with him & his RN friend that is present is room. Clarified with Gayatri that we would infuse his IV Rocephin prior to discharge today & the Home Health nurse will go out and set up this evening dose of IV Vancomycin. Informed Mr Parker and SUDHEER Garcia friend that is present of plans. Faxed information to [facility] & also [facility]. Francesca Tirado RN Clinical Liaison, [facility] Rehab
--- NOTE | 2017-05-20 14:02 | NUR ---
DR MACK INTO SEE PATIENT. DISCHARGE ORDERS RECEIVED.
--- NOTE | 2017-05-20 14:09 | NUR ---
DISCHARGE INSTRUCTIONS GONE OVER WITH PATIENT. MEDICATIONS CALLED INTO [facility] ON [address]. PATIENT DISCHARGED TO HOME.
== END 2017-05-20 14:11 | disposition home health service (06) | DRG 72 ==
LOC: D.REHAB 14:53
PROVIDERS: ADMIT Emergency Medicine
DX: G93.40 Encephalopathy, unspecified (principal); R41.0 Disorientation, unspecified; I10 Essential (primary) hypertension; K21.9 Gastro-esophageal reflux disease without esophagitis; M54.2 Cervicalgia; R53.1 Weakness; Z87.891 Personal history of nicotine dependence; R53.83 Other fatigue; D72.820 Lymphocytosis (symptomatic); R50.9 Fever, unspecified; Z95.0 Presence of cardiac pacemaker; F43.10 Post-traumatic stress disorder, unspecified; Z86.73 Personal history of transient ischemic attack (TIA), and cerebral infarction without residual deficits; R51 Headache

== ENCOUNTER → 2017-05-29 12:30 | Outpatient (CLI) | payer MEDICARE, BC ==
[2017-05-14 11:08] VITALS: BMI 22.4
[~2017-05-29 12:30] MED LIST changes: +FLORAJEN3 CAPS460 MG PO; +ROCEPHIN 1 GM/D51 G1 IVPB; +VANCOMYCIN 1 GM/1 G1 IV
== END | disposition home or self-care (01) ==
LOC: D.MRI 12:30
DX: G06.2 Extradural and subdural abscess, unspecified (principal)

== ENCOUNTER → 2017-06-25 07:55 | Outpatient (CLI) | payer MEDICARE, BC ==
[2017-05-14 11:08] VITALS: BMI 22.4
== END | disposition home or self-care (01) ==
LOC: D.MRI 07:55
DX: G06.1 Intraspinal abscess and granuloma (principal)

== ENCOUNTER → 2018-07-08 09:40 | Outpatient (CLI) | payer MEDICARE, BC ==
[2017-05-14 11:08] VITALS: BMI 22.4
== END | disposition home or self-care (01) ==
LOC: D.MRI 09:30
DX: M54.2 Cervicalgia (principal); R50.9 Fever, unspecified; Z87.2 Personal history of diseases of the skin and subcutaneous tissue

== ENCOUNTER → 2020-05-04 15:33 | Outpatient (CLI) | payer MEDICARE, BC ==
[2017-05-14 11:08] VITALS: BMI 22.4
== END | disposition home or self-care (01) ==
LOC: D.MRI 15:33
PROVIDERS: ATTEND Family Medicine
DX: M54.2 Cervicalgia (principal)